=== PATIENT | male | born 1980 | race Two or more races ===

== ENCOUNTER 2024-09-06 12:54 | Emergency (ER) | payer BC, SELFPAY ==
[2024-09-06 13:03] VITALS: BP 184/103
--- NOTE | 2024-09-06 13:05 | ED.GENMED ---
ED Provider Triage
<Phuc Renteria PA-C - Last Filed: 09/06/24 13:06>
-
Patient seen by provider in Triage?: Seen in Triage
44-year-old male with intermittent discomfort to the chest over the past week. Not exertional. Currently chest pain-free. Is followed by cardiology. Pain occasionally goes to the arm.
Looks nontoxic and stable at triage. Will start workup with CBC CMP troponin EKG and chest x-ray
Patient received a medical screening assessment by a provider in triage but does warrant further evaluation
History of Present Illness
<Phuc Renteria PA-C - Last Filed: 09/06/24 13:06>
General
Chief Complaint: Chest Pain
Time Seen by Provider: 09/06/24 14:12
<Julio Alfaro, DO - Last Filed: 09/06/24 14:53>
General
Source: patient
Exam Limitations: none
History of Present Illness
History of Present Illness:
See MDM
Past History
<Julio Alfaro, DO - Last Filed: 09/06/24 14:53>
Past History
ED Past Medical History: GERD and HTN
ED Past Surgical History: None
Social History
Tobacco: Non-smoker
Alcohol: None
Phy Exam
<Julio Alfaro, DO - Last Filed: 09/06/24 14:53>
Physical Exam
Physical Exam:
See MDM
Scores
<Julio Alfaro, DO - Last Filed: 09/06/24 14:53>
Heart Score for Chest Pain Patients
STEMI patient?: No
History: Slightly or Non-Suspicious
ECG: Normal
Age: </= 45 years
Risk Factors: 1 or 2 Risk Factors
Troponin: </= Normal Limit
Heart Score for Chest Pain Patients: 1
Heart Score Risk: 2.5% MACE over next 6 weeks
Course
Rejilt;Phuc Renteria PA-C - Last Filed: 09/06/24 13:06>
Orders/Labs/Results
Orders:
Orders
09/06/24
CR Chest - 2 Views Urgent
Comment:
Reason For Exam: chest pain
09/06/24 12:55
Electrocardiogram (*1) Urgent
Reason for Study: Chest Pain
EKG- Treatment ONCE
09/06/24 13:16
Complete Blood Count/With Diff Urgent
Comprehensive Metabolic Panel Urgent
Troponin I Urgent
Abnormal Lab Results
09/06/24
13:16
Lymphocytes % 18.5 L %
(20.5-51.1)
Glucose 117 H mg/dl
(70-99)
Calcium 10.4 H mg/dl
(8.4-10.2)
Total Bilirubin 2.0 H mg/dl
(0.2-1.3)
ALT 58 H U/L
(0-50)
Albumin 5.1 H g/dl
(3.5-5.0)
09/06/24 13:16
09/06/24 13:16
Vital Signs
Initial and Last Documented VS:
Initial Vital Signs
Temp Pulse Resp BP Pulse Ox
98.1 F 72 18 184/103 99
09/06/24 13:03 09/06/24 13:03 09/06/24 13:03 09/06/24 13:03 09/06/24 13:03
Last Documented Vital Signs
Temp Pulse Resp BP Pulse Ox
98.1 F 72 18 184/103 99
09/06/24 13:03 09/06/24 13:03 09/06/24 13:03 09/06/24 13:03 09/06/24 13:03
<Julio Alfaro, DO - Last Filed: 09/06/24 14:53>
Orders/Labs/Results
Orders:
Orders
09/06/24
CR Chest - 2 Views Urgent
Comment:
Reason For Exam: chest pain
09/06/24 12:55
Electrocardiogram (*1) Urgent
Reason for Study: Chest Pain
EKG- Treatment ONCE
09/06/24 13:16
Complete Blood Count/With Diff Urgent
Comprehensive Metabolic Panel Urgent
Troponin I Urgent
Abnormal Lab Results
09/06/24
13:16
Lymphocytes % 18.5 L %
(20.5-51.1)
Glucose 117 H mg/dl
(70-99)
Calcium 10.4 H mg/dl
(8.4-10.2)
Total Bilirubin 2.0 H mg/dl
(0.2-1.3)
ALT 58 H U/L
(0-50)
Albumin 5.1 H g/dl
(3.5-5.0)
09/06/24 13:16
09/06/24 13:16
Vital Signs
Initial and Last Documented VS:
Initial Vital Signs
Temp Pulse Resp BP Pulse Ox
98.1 F 72 18 184/103 99
09/06/24 13:03 09/06/24 13:03 09/06/24 13:03 09/06/24 13:03 09/06/24 13:03
Last Documented Vital Signs
Temp Pulse Resp BP Pulse Ox
98.1 F 72 18 184/103 99
09/06/24 13:03 09/06/24 13:03 09/06/24 13:03 09/06/24 13:03 09/06/24 13:03
<Julio Alfaro, DO - Last Filed: 09/06/24 14:53>
MDM/Problems Addressed
Differential Diagnosis Includes:
HPI and MDM Narrative:
44-year-old male presenting with intermittent chest pain for the past few weeks. Patient states he feels it in his mid chest and his throat and it sometimes goes down his left arm. It does not last long. Patient states he goes for walks outside
and does not notice any increase in the pain. It does not appear to get worse with exertion. It also does not appear to get worse with food intake but he has noted that it is worse at nighttime when he lays down. We discussed the possibility of
reflux
Blood work was done prior to my evaluation. The EKG is nonischemic and the troponin is negative. Patient was sent for chest x-ray which is also clear. We discussed doubling his PPI until seeing his PCP.
Physical exam
General: Well appearing and non-toxic
HEENT: protecting airway
Neck: appears supple
CV: No evidence of cyanosis. Regular rate and rhythm
Resp: No accessory muscle use. Lungs clear
Abd: Non-distended
Extremities: No deformities
Neuro: alert
Psych: Normal affect
Skin: Intact
Problems Addressed including Acute and Chronic Conditions affecting care:
1. Chest pain
Acuity: acute
Prognosis: stable
Details: Likely noncardiac given normal EKG and negative troponin. Chest x-ray clear. Discussed follow-up PCP and doubling PPI
Differential Diagnosis (but not limited to): Noncardiac chest pain, esophagitis, reflux
Testing considered: Second troponin but doubt ACS given normal troponin with intermittent pain for 2 weeks
Drug therapy (if applicable): OTC meds, please see d/c instruction regarding Rx drugs
Amount and/or Complexity of Data Reviewed
Clinical info obtained from: Patient
External data reviewed: N/A
Labs I independently reviewed (but not limited to): Troponin
Radiology: Chest x-ray clear
Pulse Ox: not hypoxic
EKG independently reviewed: N/A
Materials Director: N/A
Critical Care: N/A
Risk of Complication:
Social Determinants of health: Good social support
Discussed with other providers: N/A
Escalation of Care includes Admit/Obs: After being observed in the Emergency Department, pt stable for discharge.
Occasional wrong word or 'sound a like' substitutions may have occurred due to the inherent limitations of voice recognition software. Read the chart carefully and recognize, using context, where substitutions have occurred.
<Julio Alfaro DO - Last Filed: 09/06/24 14:53>
*Critical Care Note
Total Time (30-74mins, 75-104mins- exclusive of procedures): Not Applicable
ED Attending Note
<Phuc Renteria PA-C - Last Filed: 09/06/24 13:06>
-
Portions of this chart may have been created with voice recognition software.� Occasional wrong word or��sound alike� substitutions may have occurred due to the inherent limitations of voice recognition software.
Discharge Plan
Departure
Patient Disposition: Home (Routine Discharge)
Date of Disposition: 09/06/24
Time of Disposition: 14:53
Patient with high blood pressure during this ER visit?: Yes
Discharge Problem:
Chest pain
Instructions: Chest Pain PCP Follow Up, BLOOD PRESSURE
Activity Restrictions/Additional Instructions:
Please return for any worsening symptoms.
You may return at any time if you have further concerns.
Please follow up with your doctor at the first available appointment, preferably this week. Please take your antacid medicine twice a day for the next few weeks.
Thank you for choosing [facility].
Interventions
Interventions:
*Risk Screen - Suicide Last Done: 09/06/24 13:03
*General Assessment Last Done: 09/06/24 13:03
*Neglect/Abuse Screening Last Done: 12/04/24 13:03
*ED COVID-19 Vaccine History Last Done: 09/06/24 14:17
ED- Cardiac Assessment Last Done: 09/06/24 14:17
Discharge Date and Time
Print Language: BELARUSIAN
[2024-09-06 13:24] LABS: % Basophils 1.1 % (0-2); % Eosinophils 1.5 % (0-6); % Immature Granulocytes 0.4 % (0-0.5); % Lymphocytes 18.5 % (20.5-51.1); % Monocytes 6.2 % (1.7-9.3); % Neutrophils 72.3 % (42.2-75.2); Absolute Basophils 0.1 10^3/uL (0-0.2); Absolute Eosinophils 0.1 10^3/uL (0-0.7); Absolute Lymphocytes 1.4 10^3/uL (1.2-3.4); Absolute Monocytes 0.5 10^3/uL (0.1-0.6); Absolute Neutrophils 5.3 10^3/uL (1.4-6.5); Hematocrit 41.2 % (39.0-52.0); Hemoglobin 15.1 g/dL (13.0-18.0); Mean Corp Hgb Conc. 36.7 g/dL (33.0-37.0); Mean Corpuscular Hgb 30.3 pg (27.0-31.0); Mean Corpuscular Volume 82.6 fL (80.0-94.0); Mean Platelet Volume 8.9 fL (7.4-10.4); Nucleated Red Blood Cells % 0 % (-); Platelet Count 245 10^3/uL (130-400); Red Blood Cell Count 4.99 10^6/uL (4.70-6.10); Red Cell Dist. Width 11.5 % (11.5-14.5); White Blood Cell Count 7.3 10^3/uL (4.8-10.8)
[2024-09-06 13:47] LABS: ALT (SGPT) 58 U/L (0-50); AST (SGOT) 44 U/L (17-59); Albumin 5.1 g/dl (3.5-5.0); Alkaline Phosphatase 65 U/L (38-126); Blood Urea Nitrogen 15 mg/dl (9-20); Calcium 10.4 mg/dl (8.4-10.2); Carbon Dioxide 30 mmol/L (22-30); Chloride 99 mmol/L (98-107); Glucose 117 mg/dl (70-99); Potassium 4.4 mmol/L (3.5-5.1); Sodium 140 mmol/L (135-145); Total Protein 7.5 g/dl (6.3-8.2); eGFR > 60.00
[2024-09-06 13:48] LABS: Troponin I < 0.012 ng/ml
== END 2024-09-06 15:08 | disposition home or self-care (01) ==
LOC: EMR 12:54
PROVIDERS: Physician Assistant; EMERGENCY PHYSICIAN Student in an Organized Health Care Education/Training Program; FAMILY PHYSICIAN Family Medicine
DX: R07.89 Other chest pain (principal); I10 Essential (primary) hypertension
CPT/HCPCS: 99285; 71046; 80053; 84484; 85025; 93005